=== PATIENT | male | born 1950 | race Asian ===

== ENCOUNTER 2022-07-26 23:41 | Inpatient (IN) | payer BC, MEDICARE ==
[~2022-07-26] VITALS: Ht 170.2 cm; Wt 73.5 kg
[~2022-07-26 23:41] MED LIST: BACL-141 PO; CARB200T PO; CEPH250C2 PO; DOXA8TAB81 PO; LOVA20TA2 PO
[2022-07-27] MEDS ORDERED: ONDANSETRON HCL 4MG/2ML INJ IV STA (00:57)
[2022-07-27] MEDS ORDERED: MORPHINE SULFATE 4 MG/ML CPJ (NOT FOR IM USE) IV STA (00:57)
[2022-07-27] MEDS ORDERED: SODIUM CHLORIDE 0.9% 1000ML BAG (SEPSIS BOLUS) IV ONE (01:00)
[2022-07-27] MEDS ORDERED: VANCOMYCIN 1G PREMIX 200 ML IV ONE (01:00)
[2022-07-27] MEDS ORDERED: PIPERACILLIN/TAZ 3.375G PREMIX 50 ML IV ONE (01:00)
[2022-07-27] MEDS ORDERED: ONDANSETRON HCL 4MG/2ML INJ IV NR (03:00)
[2022-07-27] MEDS ORDERED: MORPHINE SULFATE 4 MG/ML CPJ (NOT FOR IM USE) IV NR (03:00)
[2022-07-27 03:41] LABS: BASOPHILS % 0.3 % (0.0-2.0); HEMATOCRIT. 40.8 % (42.0-52.0); HEMOGLOBIN. 13.9 g/dL (14.0-18.0); LYMPHOCYTES % 12.2 % (20.0-50.0); MEAN CORPUSCULAR HEMOGLOBIN 31.1 pg (28.0-32.0); MEAN CORPUSCULAR VOLUME 91.1 fL (80.0-94.0); MEAN PLATELET VOLUME 8.8 fl (7.4-10.4); MONOCYTES % 10.1 % (2.0-8.0); NEUTROPHILS % 77.4 % (40.0-76.0); PLATELET 224 x1000/uL (130-400); RED BLOOD CELL COUNT 4.48 mill/uL (4.7-6.1)
[2022-07-27 04:01] LABS: CHLORIDE 99 mEq/L (98-107)
[2022-07-27 04:49] LABS: PARTIAL THROMBOPLASTIN TIME 33.5 sec (23.4-31.0); PROTHROMBIN TIME 10.3 sec (9.6-11.0)
[2022-07-27 08:00] VITALS: BP 140/74
[2022-07-27] MEDS ORDERED: HYDROCODONE/ACETAMINOPHEN 5/325MG TABLET PO PRN (11:00)
[2022-07-27] MEDS ORDERED: ONDANSETRON HCL 4MG/2ML INJ IV PRN (11:00)
[2022-07-27] MEDS ORDERED: NALOXONE HCL 0.4MG/ML VIAL IV PRN (11:15)
[2022-07-27 12:00] VITALS: BP 140/74
[2022-07-27] MEDS: CEFTRIAXONE 1,000 MG in DEXTROSE 5% WATER 50 ML IV SCH (12:00)
[2022-07-27] MEDS ORDERED: SORBITOL 70% SOLN 30ML PO NR (12:45)
[2022-07-27] MEDS ORDERED: NA PHOS,M-B/NA PHOS,DI-BA ENEMA 118ML PR NR (12:45)
[2022-07-27] MEDS: VANCOMYCIN 500MG PREMIX 100 ML IV SCH (13:00)
[2022-07-27 16:00] VITALS: BP 122/74
[2022-07-27 16:41] VITALS: BP 132/79
[2022-07-27 20:00] VITALS: BP 117/66
[2022-07-27] MEDS: DOXAZOSIN MESYLATE 4MG TABLET PO SCH (20:44)
[2022-07-27] MEDS: CARBAMAZEPINE 200MG TABLET PO SCH (20:44)
[2022-07-27] MEDS: BACLOFEN 10MG TABLET PO SCH (20:44)
[2022-07-27] MEDS: ATORVASTATIN CALCIUM 10MG TABLET PO SCH (20:45)
[2022-07-27] MEDS ORDERED: PNEUMOCOCCAL 23-VAL P-SAC VAC 0.5 ML IM ONE (21:00)
[2022-07-28] VITALS: BP 128/65
[2022-07-28] MEDS: VANCOMYCIN 500MG PREMIX 100 ML IV SCH (02:23)
[2022-07-28 04:00] VITALS: BP 100/61
[2022-07-28] MEDS: VANCOMYCIN 750MG PREMIX 150 ML IV SCH ×2 (10:48→23:37)
[2022-07-28] MEDS: CEFTRIAXONE 1,000 MG in DEXTROSE 5% WATER 50 ML IV SCH (12:50)
[2022-07-28 20:00] VITALS: BP_SYST 104; BP_SYST 117; BP_SYST 147; BP_DIAS 63; BP_DIAS 71; BP_DIAS 87
[2022-07-28] MEDS: BACLOFEN 10MG TABLET PO SCH (21:06)
[2022-07-28] MEDS: CARBAMAZEPINE 200MG TABLET PO SCH (21:06)
[2022-07-28] MEDS: ATORVASTATIN CALCIUM 10MG TABLET PO SCH (21:07)
[2022-07-28] MEDS: DOXAZOSIN MESYLATE 4MG TABLET PO SCH (21:13)
[2022-07-28] MEDS ORDERED: LORAZEPAM 1MG TABLET PO NR (22:45)
[2022-07-28 23:53] LABS: BASOPHILS % 0.2 % (0.0-2.0); EOSINOPHILS % 0.2 % (0.0-5.0); HEMATOCRIT. 39.1 % (42.0-52.0); HEMOGLOBIN. 13.4 g/dL (14.0-18.0); LYMPHOCYTES % 9.6 % (20.0-50.0); MEAN CORPUSCULAR HEMOGLOBIN 31.2 pg (28.0-32.0); MEAN CORPUSCULAR VOLUME 91.3 fL (80.0-94.0); MEAN PLATELET VOLUME 8.2 fl (7.4-10.4); MONOCYTES % 8.2 % (2.0-8.0); NEUTROPHILS % 81.8 % (40.0-76.0); PLATELET 261 x1000/uL (130-400); RED BLOOD CELL COUNT 4.29 mill/uL (4.7-6.1); RED CELL DISTRIBUTION WIDTH 13.5 % (11.6-14.6)
[2022-07-28 23:58] LABS: CHLORIDE 101 mEq/L (98-107)
[2022-07-29] VITALS: BP 130/80
[2022-07-29 04:00] VITALS: BP 130/69
[2022-07-29 08:00] VITALS: BP 127/76
[2022-07-29 12:00] VITALS: BP 127/76
[2022-07-29] MEDS: VANCOMYCIN 750MG PREMIX 150 ML IV SCH ×2 (12:19→23:27)
[2022-07-29 16:00] VITALS: BP 124/72
[2022-07-29] MEDS: CEFTRIAXONE 1,000 MG in DEXTROSE 5% WATER 50 ML IV SCH (18:07)
[2022-07-29 20:00] VITALS: BP 118/76
[2022-07-29] MEDS: CARBAMAZEPINE 200MG TABLET PO SCH (21:00)
[2022-07-29] MEDS: ATORVASTATIN CALCIUM 10MG TABLET PO SCH (21:00)
[2022-07-29] MEDS: DOXAZOSIN MESYLATE 4MG TABLET PO SCH (21:00)
[2022-07-29] MEDS: BACLOFEN 10MG TABLET PO SCH (21:00)
[2022-07-29] MEDS: ACETAMINOPHEN 325MG TABLET PO PRN (23:27)
[2022-07-30] MEDS: ZOLPIDEM TARTRATE 5MG TABLET PO PRN ×2 (01:05→22:04)
[2022-07-30 04:00] VITALS: BP 115/51
[2022-07-30 08:00] VITALS: BP 147/80
[2022-07-30] MEDS: VANCOMYCIN 750MG PREMIX 150 ML IV SCH (10:16)
[2022-07-30 11:55] VITALS: BP 122/60
[2022-07-30] MEDS: CEFTRIAXONE 1,000 MG in DEXTROSE 5% WATER 50 ML IV SCH (14:44)
[2022-07-30 16:00] VITALS: BP 130/67
[2022-07-30 20:00] VITALS: BP 127/61
[2022-07-30] MEDS: CARBAMAZEPINE 200MG TABLET PO SCH (21:24)
[2022-07-30] MEDS: ATORVASTATIN CALCIUM 10MG TABLET PO SCH (21:24)
[2022-07-30] MEDS: BACLOFEN 10MG TABLET PO SCH (21:24)
[2022-07-30] MEDS: VANCOMYCIN 1G PREMIX 200 ML IV SCH (21:24)
[2022-07-30] MEDS: DOXAZOSIN MESYLATE 4MG TABLET PO SCH (21:25)
[2022-07-31] MEDS: ACETAMINOPHEN 325MG TABLET PO PRN ×2 (05:07→17:13)
[2022-07-31 08:00] VITALS: BP 116/63
[2022-07-31] MEDS: VANCOMYCIN 1G PREMIX 200 ML IV SCH ×2 (08:40→21:00)
[2022-07-31 12:00] VITALS: BP 125/69
[2022-07-31] MEDS: CEFTRIAXONE 1,000 MG in DEXTROSE 5% WATER 50 ML IV SCH (12:59)
[2022-07-31 15:52] VITALS: BP 125/60
[2022-07-31 20:00] VITALS: BP 129/82
[2022-07-31] MEDS: BACLOFEN 10MG TABLET PO SCH (21:00)
[2022-07-31] MEDS: CARBAMAZEPINE 200MG TABLET PO SCH (21:00)
[2022-07-31] MEDS: DOXAZOSIN MESYLATE 4MG TABLET PO SCH (21:00)
[2022-07-31] MEDS: ATORVASTATIN CALCIUM 10MG TABLET PO SCH (21:00)
[2022-08-01] VITALS: BP 124/80
[2022-08-01 04:00] VITALS: BP 122/82
[2022-08-01 07:25] LABS: CHLORIDE 102 mEq/L (98-107)
[2022-08-01 08:00] VITALS: BP 127/82
[2022-08-01] MEDS: VANCOMYCIN 1G PREMIX 200 ML IV SCH (10:09)
[2022-08-01 15:09] VITALS: BP 114/69
[2022-08-01] MEDS ORDERED: DOXY100T2 MT (15:33)
[2022-08-01] MEDS ORDERED: AMOX1TAB15 MT (15:35)
[2022-08-01 16:00] VITALS: BP 151/84
[2022-08-01 20:00] VITALS: BP 142/89
[2022-08-01] MEDS: BACLOFEN 10MG TABLET PO SCH (21:12)
[2022-08-01] MEDS: ATORVASTATIN CALCIUM 10MG TABLET PO SCH (21:13)
[2022-08-01] MEDS: CARBAMAZEPINE 200MG TABLET PO SCH (21:13)
[2022-08-01] MEDS: DOXAZOSIN MESYLATE 4MG TABLET PO SCH (21:13)
[2022-08-01] MEDS: ZOLPIDEM TARTRATE 5MG TABLET PO PRN ×2 (23:09)
== END 2022-08-01 23:21 | DRG 603 ==
LOC: ER 23:55 → 6EST 07-27 05:58
PROVIDERS: ADMIT Internal Medicine Pulmonary Disease; ATTEND Internal Medicine Pulmonary Disease
DX: L03.116 Cellulitis of left lower limb (principal); G82.20 Paraplegia, unspecified; D64.9 Anemia, unspecified; R74.01 Elevation of levels of liver transaminase levels; D72.829 Elevated white blood cell count, unspecified; I10 Essential (primary) hypertension; Z88.2 Allergy status to sulfonamides; Z82.49 Family history of ischemic heart disease and other diseases of the circulatory system
CPT/HCPCS: 36415; 71045; 80048; 80053; 80202; 83605; 84145; 84484; 85025; 93970; 97162; 99285; J0696; J2270; J2405; J2543; J3370; J7030; J7060; A4315